=== PATIENT | male | born 1970 | race Caucasian/White ===

== ENCOUNTER 2021-08-10 03:57 | Emergency (ER) | payer OTHER ==
[2021-08-10] MEDS ORDERED: diazePAM 5 MG TABLET PO ONE (04:07)
[2021-08-10] MEDS ORDERED: diazePAM CARPU-JECT 10 MG/2 ML DISP.SYRIN IVPUSH ONE (04:09)
[2021-08-10] MEDS ORDERED: LIDOCAINE 5% TOPICAL PATCH TP ONE (04:10)
[2021-08-10 04:14] VITALS: TEMP 97.9; BMI 29.2
[2021-08-10] MEDS ORDERED: ACETAMINOPHEN 1000 MG/100 ML VIAL IVPB ONE (04:27)
[2021-08-10] MEDS ORDERED: ACETAMINOPHEN INJECTION 100 ML IVPB ONE (04:47)
[2021-08-10] MEDS ORDERED: morphine CARPU-JECT 4 MG/1 ML DISP.SYRIN IVPUSH ONE (04:59)
[2021-08-10] MEDS ORDERED: morphine SULFATE 4 MG/ML VIAL ONE (05:06)
[2021-08-10] MEDS ORDERED: morphine CARPU-JECT 2 MG/1 ML DISP.SYRIN IVPUSH ONE (05:19)
[2021-08-10] MEDS ORDERED: LIDOCAINE 5% TOPICAL PATCH ONE (05:52)
[2021-08-10 06:38] LABS: BASO % 0.4 % (0-2.0); EOS % 1.1 % (0-4.5); HEMATOCRIT 42.8 % (35.4-49); HEMOGLOBIN 14.4 GM/dL (11.7-16.9); LYMPH % 19.7 % (8-40); MCH 27.1 pg (25.7-33.7); MCHC 33.7 g/dl (32.0-35.9); MEAN CELL VOLUME 80.2 fl (80-96); MEAN PLT VOLUME 8.6 fl (7.5-11.1); MONO % 11.6 % (3.8-10.2); NEUT % 67.2 % (42.8-82.8); PLATELET COUNT 325 10^3/uL (134-434); RBC 5.33 M/mm3 (4.00-5.60); RDW 16.1 % (11.9-15.9); WHITE BLOOD COUNT 8.8 K/mm3 (4.0-10.0)
[2021-08-10 06:53] LABS: CHLORIDE 111 mmol/L (98-107); SODIUM 140 mmol/L (136-145)
[2021-08-10 06:55] LABS: ALBUMIN 3.4 g/dl (3.4-5.0); CALCIUM 8.8 mg/dL (8.5-10.1)
[2021-08-10 06:56] LABS: ANION GAP 7 MMOL/L (8-16); BLOOD UREA NITROGEN 12.3 mg/dL (7-18); CO2 22 mmol/L (21-32); GLUCOSE,RANDOM 100 mg/dL (74-106)
[2021-08-10 06:59] LABS: SGOT/AST 32 U/L (15-37); SGPT/ALT 37 U/L (13-61)
[2021-08-10 07:00] LABS: BILIRUBIN,TOTAL 0.4 mg/dL (0.2-1); TOT PROT 7.9 g/dl (6.4-8.2)
[2021-08-10 07:01] LABS: ALK PHOS 101 U/L (45-117)
[2021-08-10 08:52] VITALS: BP 118/81; PULSE 74
[2021-08-10] MEDS ORDERED: KETOROLAC TROMETHAMINE 15 MG/ML VIAL IVPUSH ONE (09:18)
[2021-08-10] MEDS ORDERED: KETOROLAC TROMETHAMINE 15 MG/ML VIAL ONE (09:33)
[2021-08-10] MEDS ORDERED: LIDOCAINE PATCH REMOVAL MC SCH (22:00)
== END 2021-08-10 09:35 | disposition home or self-care (01) ==
LOC: JER 03:57
PROC: 3E033NZ Introduction of Analgesics, Hypnotics, Sedatives into Peripheral Vein, Percutaneous Approach (ICD-10-PCS; principal; 2021-08-10)
PROC: 3E033GC Introduction of Other Therapeutic Substance into Peripheral Vein, Percutaneous Approach (ICD-10-PCS; 2021-08-10)
PROC: 3E0333Z Introduction of Anti-inflammatory into Peripheral Vein, Percutaneous Approach (ICD-10-PCS; 2021-08-10)
DX: M54.50 Low back pain, unspecified (principal)
CPT/HCPCS: 36415; 71045-TC-FY; 72131-TC; 80053; 82550; 84484; 85025; 93005; 93010; 99284-25; J0131